=== PATIENT | male | born 1980 | race American Indian/Alaskan Native ===

== ENCOUNTER 2019-02-17 11:44 | Emergency (ER) | payer MEDICAID, OTHER ==
--- NOTE | 2019-02-17 12:06 | Emergency Department Report ---
Chief Complaint: Abdominal Pain Stated Complaint: OUT OF PAIN MEDS Time Seen by Provider: 02/17/19 12:01 - HPI History of Present Illness: This is a 38 y.o. male that presents for evaluation of surgical site to abdomen. Patient states he had emergency surgery in OR 02/11/2019. He had an appendectomy and work on intestines. There are garret from umbilical to pelvic region of abdomen. - ROS Review of Systems: abdominal pain - Exam Vital Signs: Vital Signs 02/17/19 12:02 Temperature 98 F Pulse Rate 87 Respiratory 18 Rate Blood Pressure 124/87 O2 Sat by Pulse 99 Oximetry MSE screening note: Focused history and physical exam performed. Due to findings the following was ordered: Labs Fast track for further evaluation. ED Disposition for MSE Condition: Stable
[2019-02-17 12:57] LABS: Basophils % (Auto) 0.2 % (0.0-1.8); Eosinophils # (Auto) 0.1 K/mm3 (0.0-0.4); Eosinophils % (Auto) 0.8 % (0.0-4.3); Hematocrit 46.4 % (35.5-45.6); Hemoglobin 15.4 gm/dl (11.8-15.2); Lymphocytes # (Auto) 1.9 K/mm3 (1.2-5.4); Lymphocytes % (Auto) 16.5 % (13.4-35.0); Mean Corpuscular HGB Conc 33 % (32-34); Mean Corpuscular Volume 90 fl (84-94); Monocytes # (Auto) 0.9 K/mm3 (0.0-0.8); Monocytes % (Auto) 7.7 % (0.0-7.3); Platelet Count 274 K/mm3 (140-440); Red Blood Count 5.19 M/mm3 (3.65-5.03); Red Cell Distribution Width 13.9 % (13.2-15.2)
[2019-02-17 13:16] LABS: Alanine Aminotransferase 42 units/L (7-56); Albumin 4.3 g/dL (3.9-5); BUN/Creatinine Ratio 7; Blood Urea Nitrogen 8 mg/dL (9-20); Calcium 9.7 mg/dL (8.4-10.2); Hemolysis Index 4
--- NOTE | 2019-02-17 13:26 | Emergency Department Report ---
ED General Adult HPI - General Chief complaint: Abdominal Pain Stated complaint: OUT OF PAIN MEDS Time Seen by Provider: 02/17/19 12:01 Source: patient Mode of arrival: Ambulatory Limitations: No Limitations - History of Present Illness Initial comments: Patient is a 38-year-old [place] male who while on vacation last week had to be seen at a hospital and had to have an emergency appendectomy. Patient has midline scar with Entex 6 garret around his navel he also has some laparoscopic scars as well. Patient states he ran out of his pain medications. Patient has had bowel movements and is not having any nausea vomiting. Patient is a pain is 8 out of 10 in severity. Patient is due to follow-up 2 weeks post op in [place] for this surgery. Severity scale (0 -10): 0 - Related Data Previous Rx's Medication Instructions Recorded Last Taken Type Clindamycin [Clindamycin CAP] 300 mg PO Q8H 7 Days cap 02/17/19 Unknown Rx Docusate Sodium [Colace] 100 mg PO BID #20 capsule 02/17/19 Unknown Rx oxyCODONE /ACETAMINOPHEN [Percocet 1 tab PO Q6HR PRN #10 tablet 02/17/19 Unknown Rx 5/325] Allergies Allergy/AdvReac Type Severity Reaction Status Date / Time No Known Allergies Allergy Unverified 08/31/16 13:55 ED Review of Systems ROS: Stated complaint: OUT OF PAIN MEDS Other details as noted in HPI Comment: All other systems reviewed and negative ED Past Medical Hx - Past Medical History Previous Medical History?: No - Surgical History Past Surgical History?: Yes Hx Appendectomy: Yes Additional Surgical History: Broken femur. Surgery to small intestine and appy 01/2019 - Social History Smoking Status: Never Smoker Substance Use Type: None - Medications Home Medications: Home Medications Medication Instructions Recorded Confirmed Last Taken Type Clindamycin [Clindamycin CAP] 300 mg PO Q8H 7 Days cap 02/17/19 Unknown Rx Docusate Sodium [Colace] 100 mg PO BID #20 capsule 02/17/19 Unknown Rx oxyCODONE /ACETAMINOPHEN [Percocet 1 tab PO Q6HR PRN #10 tablet 02/17/19 Unknow n Rx 5/325] ED Physical Exam - General Limitations: No Limitations General appearance: alert, in no apparent distress - Head Head exam: Present: atraumatic, normocephalic - Eye Eye exam: Present: normal appearance - ENT ENT exam: Present: mucous membranes moist - Neck Neck exam: Present: normal inspection - Respiratory Respiratory exam: Present: normal lung sounds bilaterally. Absent: respiratory distress, wheezes, rales, rhonchi - Cardiovascular Cardiovascular Exam: Present: regular rate, normal rhythm. Absent: systolic murmur, diastolic murmur, rubs, gallop - GI/Abdominal GI/Abdominal exam: Present: soft, tenderness (mild tenderness at the superior edge of his midline periumbilical scar. There is a very faint amount of erythema present. Garret are intact there is no purulent drainage through the wound. The patient's other laparoscopic scars are all within normal limits. ), normal bowel sounds. Absent: distended, guarding, rebound, rigid - Rectal Rectal exam: Present: deferred - Extremities Exam Extremities exam: Present: normal inspection - Back Exam Back exam: Present: normal inspection - Neurological Exam Neurological exam: Present: alert, oriented X3 - Psychiatric Psychiatric exam: Present: normal affect, normal mood - Skin Skin exam: Present: warm, dry, intact, normal color. Absent: rash ED Course Vital Signs 02/17/19 12:02 Temperature 98 F Pulse Rate 87 Respiratory 18 Rate Blood Pressure 124/87 O2 Sat by Pulse 99 Oximetry ED Medical Decision Making - Lab Data Result diagrams: 02/17/19 12:23 02/17/19 12:23 - Medical Decision Making Patient with a possible early cellulitis to his midline scar. There is no fluctuance and no out. there is no drainage. I do not feel as though garret need to be removed at this time. Patient to be started on antibiotics patient be discharged home and can follow up with his surgeon Critical care attestation.: If time is entered above; I have spent that time in minutes in the direct care of this critically ill patient, excluding procedure time. ED Disposition Clinical Impression: Post-op pain Disposition: DC-01 TO HOME OR SELFCARE Is pt being admited?: No Does the pt Need Aspirin: No Condition: Stable Instructions: Suture Care (ED), Staple Care (ED) Referrals: ZULEMA FAULKNER MD [Primary Care Provider] - 3-5 Days Time of Disposition: 13:29
[2019-02-17 13:41] VITALS: BP 120/70
[2019-02-17 13:43] LABS: Bilirubin,Urine NEG (Negative); Blood,Urine NEG (Negative); Color,Urine Yellow (Yellow); Mucus,Urine FEW /HPF; Protein,Urine <15 mg/dL mg/dL (Negative); Urobilinogen,Urine < 2.0 mg/dL (<2.0)
== END 2019-02-17 13:37 | disposition home or self-care (01) ==
LOC: ED 11:44
DX: R10.9 Unspecified abdominal pain (principal); G89.18 Other acute postprocedural pain; Z90.49 Acquired absence of other specified parts of digestive tract
CPT/HCPCS: 36415; 80053; 81001; 85025